=== PATIENT | female | born 1995 | race Caucasian/White ===

== ENCOUNTER → 2018-04-26 09:57 | Outpatient (CLI) | payer OTHER, SELFPAY ==
[2018-04-26 13:49] LABS: Color, Urine Yellow (Yellow); Glucose, Dipstick Normal (Normal); Ketone-Dipstick Negative (Negative); Leukocyte Esterase-Dipstick 25 /ul (Negative); Nitrite-Dipstick Negative (Negative); Occult Blood-Urine Negative /ul (Negative); Protein-Dipstick Negative (Negative); Urine Bilirubin Dipstick Negative (Negative); Urine Clarity Clear (Clear); Urine Urobilinogen Normal (Normal)
[2018-04-26 13:55] LABS: Absolute Lymphocyte Count 0.69 X10^3/ul (0.83-4.51); Absolute Neutrophil Count 4.6 X10^3/uL (2.0-7.7); Basophil# 0.01 X10^3/uL; Basophil% 0.2 % (0-1); Eosinophil# 0.08 X10^3/uL; Eosinophils% 1.4 % (0-5); Hematocrit 33.7 % (37-47); Hemoglobin 11.5 g/dl (12.0-15.0); Lymphocyte # 0.69 X10^3/ul (4.0); Lymphocyte % 11.7 % (19-41); Mean Corp Hgb Conc 34.1 g/gl (32-36); Mean Corpuscular Hgb 31.8 pg (27.0-32.0); Mean Corpuscular Volume 93.1 fL (81-99); Mean Platelet Vol. 9.8 fl (6.2-12.0); Monocyte# 0.46 X10^3/uL; Monocyte% 7.8 % (0-10); Neutrophil # 4.64 X10^3/uL (2.7-7.7); Neutrophil % 78.6 % (47-70); Platelet Count 204 K/mm3 (150-450); RBC Distribution Width CV 14.2 % (11.6-14.6); RBC Distribution Width SD 46.6 fl (35.1-43.9); Red Blood Count 3.62 M/mm3 (4.2-5.4); White Blood Count 5.9 K/mm3 (4.4-11.0)
[2018-04-26 13:57] LABS: POSITIVE COUNT NO; POSITIVE DIFFERENTIAL NO; POSITIVE MORPHOLOGY NO
[2018-04-26 14:13] LABS: Thyroid Stim Hormone (TSH) 1.27 uIU/mL (0.358-3.74)
[2018-04-26 14:50] LABS: HIV - WCH Non-Reactive (Nonreactive)
[2018-04-26 16:52] LABS: Chlamydia Trachomatis by PCR Negative (Negative); Neisserai gonorrhoeae by PCR Negative (Negative); Probe Check PASS; Sample Adequacy Control PASS; Specimen Processing Control PASS
[2018-04-27 03:32] LABS: Prenatal RPR NONREACTIVE (NONREACTIVE)
[2018-04-27 12:30] LABS: HEPATITIS B SURFACE AG Negative (Negative); Hep C Antibodies <0.1 s/co ratio (0.0-0.9)
[2018-04-28 20:11] LABS: HPV Reflexed? NOT INDICATED
== END ==
PROVIDERS: Visit Provider Obstetrics & Gynecology
DX: Z34.82 Encounter for supervision of other normal pregnancy, second trimester (principal); Z12.4 Encounter for screening for malignant neoplasm of cervix; Z11.3 Encounter for screening for infections with a predominantly sexual mode of transmission
CPT/HCPCS: 36415; 81002; 84443; 85025; 86703; 86762; 86803; 87340; 87491; 87591; 88175; G0145

== ENCOUNTER → 2018-05-24 08:53 | Outpatient (CLI) | payer OTHER, SELFPAY ==
[2018-05-24 12:18] LABS: Glucose Challenge Gest 1H 50g 105 mg/dL (70-140)
== END ==
PROVIDERS: Visit Provider Obstetrics & Gynecology
DX: Z34.82 Encounter for supervision of other normal pregnancy, second trimester (principal)
CPT/HCPCS: 36415; 82950

== ENCOUNTER → 2018-07-23 | Outpatient (CLI) | payer OTHER, SELFPAY | END | disposition home or self-care (01) | LOC: LABSPEC 11:50 | PROVIDERS: Visit Provider Obstetrics & Gynecology | DX: Z36.85 Encounter for antenatal screening for Streptococcus B (principal) | CPT/HCPCS: 87081 ==

== ENCOUNTER 2018-08-10 13:35 | Inpatient (IN) | payer SELFPAY ==
[2018-08-10 13:48] VITALS: BMI 34.6
[2018-08-10] MEDS: Lactated Ringers 1,000 ML 50 ML IV (14:20)
[2018-08-10 14:53] LABS: Absolute Lymphocyte Count 0.88 X10^3/ul (0.83-4.51); Absolute Neutrophil Count 6.1 X10^3/uL (2.0-7.7); Basophil# 0.01 X10^3/uL; Basophil% 0.1 % (0-1); Eosinophil# 0.04 X10^3/uL; Eosinophils% 0.5 % (0-5); Hematocrit 36.7 % (37-47); Hemoglobin 12.6 g/dl (12.0-15.0); Lymphocyte # 0.88 X10^3/ul (4.0); Lymphocyte % 11.4 % (19-41); Mean Corp Hgb Conc 34.3 g/gl (32-36); Mean Corpuscular Hgb 31.3 pg (27.0-32.0); Mean Corpuscular Volume 91.3 fL (81-99); Mean Platelet Vol. 9.9 fl (6.2-12.0); Monocyte# 0.66 X10^3/uL; Monocyte% 8.6 % (0-10); Neutrophil % 79.1 % (47-70); Platelet Count 172 K/mm3 (150-450); RBC Distribution Width CV 13.8 % (11.6-14.6); RBC Distribution Width SD 45.6 fl (35.1-43.9); Red Blood Count 4.02 M/mm3 (4.2-5.4); White Blood Count 7.7 K/mm3 (4.4-11.0)
[2018-08-10 14:56] LABS: POSITIVE COUNT NO; POSITIVE DIFFERENTIAL NO; POSITIVE MORPHOLOGY NO
[2018-08-10] MEDS: Oxytocin 30 units/NS 500 ml 30 UNITS/500 ML IV.SOLN IV (15:00)
[2018-08-10] MEDS: Oxytocin 10 UNITS/ML Vial IM (18:50)
--- NOTE | 2018-08-10 19:10 | PCM.OPRPT ---
Vaginal Delivery Maternal Presentation: Active Labor, Spontaneous Rupture of Membranes Amniotic Membrane Rupture Type: Spontaneous at home Amniotic Fluid Description: Clear Final TEQUILA: 08/18/18 Final TEQUILA Source: US <20 weeks Gestational age: 38 Weeks and 6 Days Date of Procedure: 08/10/18 Pre-Operative Diagnosis: IUP Post-Operative Diagnosis: IUP Surgery/ Procedure Performed: Spontaneous Vaginal Delivery Type of Anesthesia: None Description of Procedure: Spontaneous vaginal delivery of a viable female with Apgars of 8/9 from an occiput anterior presentation with clear amniotic fluid and normal three-vessel placenta. No episiotomy. Second-degree midline laceration repaired with 3-0 Rapide suture. Sponges okay. Delivery physician: Robert Hammer MD. Presentation: Vertex Placental Delivery Description: Spontaneous Placenta Disposition: [facility] Cord Vessel Description: 3 Vessels Cord Entanglement: None Estimated Blood Loss: 250 cc A gender: Female (1 minute): 8 (5 minute): 9 Episiotomy Description: None Laceration: Midline, 2nd degree Medications given after delivery: IM [place] Complications: None
--- NOTE | 2018-08-10 19:13 | OP.PCM_ITS ---
Vaginal Delivery Maternal Presentation: Active Labor, Spontaneous Rupture of Membranes Amniotic Membrane Rupture Type: Spontaneous at home Amniotic Fluid Description: Clear Final TEQUILA: 08/18/18 Final TEQUILA Source: US <20 weeks Gestational age: 38 Weeks and 6 Days Date of Procedure: 08/10/18 Pre-Operative Diagnosis: IUP Post-Operative Diagnosis: IUP Surgery/ Procedure Performed: Spontaneous Vaginal Delivery Type of Anesthesia: None Description of Procedure: Spontaneous vaginal delivery of a viable female with Apgars of 8/9 from an occiput anterior presentation with clear amniotic fluid and normal three- vessel placenta. No episiotomy. Second-degree midline laceration repaired with 3-0 Rapide suture. Sponges okay. Delivery physician: Robert Hammer MD. Presentation: Vertex Placental Delivery Description: Spontaneous Placenta Disposition: [facility] Cord Vessel Description: 3 Vessels Cord Entanglement: None Estimated Blood Loss: 250 cc Infant A gender: Female (1 minute): 8 (5 minute): 9 Episiotomy Description: None Laceration: Midline, 2nd degree Medications given after delivery: IM [place] Complications: None
--- NOTE | 2018-08-10 19:13 | PCM.DCVAG ---
Discharge Diet: No Restrictions Discharge Activity: May Shower, May Take a Tub Bath May resume sexual activity in: 4-6 weeks Additional Activity Instructions:: Nothing in the vagina for 4-6 weeks. You may return to work/school in 6 weeks. Call your doctor if you observe: Fever of 101 or Higher, Inability to urinate, Inability to have a bowel movement, Using more than one pad per hour Additional Instructions: If you experience any of the following, contact your healthcare provider. Bleeding that soaks a pad every hour for 2 hours Unrelieved incision or abdominal pain Swelling, redness, discharge or bleeding from your incision or episiotomy site Your incision begins to separate Problems urinating (including inability to urinate or burning while urinating). Visual changes Severe headache Flu-like symptoms Pain or redness in one of both of your breasts Pain, warmth, tenderness or swelling in your legs, especially the calf area Frequent nausea and vomiting Symptoms of depression or anxiety If you experience any of the following, call 911 or go to the nearest Emergency Room. Chest pain Problems breathing Seizure activity Partial or complete paralysis of a body part, slurred speech, weakness or drooping of the face, or a sudden inability to walk or hold your balance Allergies/Adverse Reactions: Allergies No Known Allergies Allergy (Verified 08/10/18 14:54) Medications to take at Discharge Pnv No.95/Ferrous Fum/Folic AC [ Caplet] 1 each PO 08/10/18 Please Follow Up With: Emily Guthrie MD - [phone] When: Call to make an appointment with your doctor in 6 weeks. Primary Care Physician: Abelino Greenwood MD [Primary Care Provider] - Test Results: Test results from this visit will be discussed in further detail at your follow-up appointment, if applicable.
--- NOTE | 2018-08-10 19:14 | DCINST_ITS ---
Discharge Diet: No Restrictions Discharge Activity: May Shower, May Take a Tub Bath May resume sexual activity in: 4-6 weeks Additional Activity Instructions:: Nothing in the vagina for 4-6 weeks. You may return to work/school in 6 weeks. Call your doctor if you observe: Fever of 101 or Higher, Inability to urinate, Inability to have a bowel movement, Using more than one pad per hour Additional Instructions: If you experience any of the following, contact your healthcare provider. * Bleeding that soaks a pad every hour for 2 hours * Unrelieved incision or abdominal pain * Swelling, redness, discharge or bleeding from your incision or episiotomy site * Your incision begins to separate * Problems urinating (including inability to urinate or burning while urinating). * Visual changes * Severe headache * Flu-like symptoms * Pain or redness in one of both of your breasts * Pain, warmth, tenderness or swelling in your legs, especially the calf area * Frequent nausea and vomiting * Symptoms of depression or anxiety If you experience any of the following, call 911 or go to the nearest Emergency Room. * Chest pain * Problems breathing * Seizure activity * Partial or complete paralysis of a body part, slurred speech, weakness or drooping of the face, or a sudden inability to walk or hold your balance Allergies/Adverse Reactions: Allergies No Known Allergies Allergy (Verified 08/10/18 14:54) Medications to take at Discharge Pnv No.95/Ferrous Fum/Folic AC [ Caplet] 1 each PO 08/10/18 Please Follow Up With: Emily Guthrie MD - [phone] When: Call to make an appointment with your doctor in 6 weeks. Primary Care Physician: Abelino Greenwood MD [Primary Care Provider] - Test Results: Test results from this visit will be discussed in further detail at your follow- up appointment, if applicable.
[2018-08-10 21:05] VITALS: BP 124/73; PULSE 109; RESP 16; TEMP 36.8
[2018-08-11 00:07] VITALS: BP 119/76; PULSE 91; RESP 16; TEMP 37.6
[2018-08-11 04:40] VITALS: BP 116/76; PULSE 109; RESP 16; TEMP 36.8
[2018-08-11 08:30] VITALS: BP 126/72; PULSE 93; RESP 16; TEMP 36.7
--- NOTE | 2018-08-11 09:26 | PN.OBGYN_ITS ---
Subjective: Patient without complaints. Breast-feeding going well. Minimal vaginal bleeding reported. Pain well controlled. - Physical Exam Vital Signs Temp Pulse Resp BP 98.0 F 93 16 126/72 H 08/11/18 08:30 08/11/18 08:30 08/11/18 08:30 08/11/18 08:30 Oxygen Delivery Method Room Air Weight: 208 lb Body Mass Index (BMI) 34.6 Laboratory Tests Past 24 Hrs 08/10/18 08/10/18 14:25 14:25 WBC 7.7 RBC 4.02 L Hgb 12.6 Hct 36.7 L MCV 91.3 MCH 31.3 MCHC 34.3 RDW 13.8 RDW Differential 45.6 H Plt Count 172 MPV 9.9 Immature Gran % (Auto) 0.300 Neut % (Auto) 79.1 H Lymph % (Auto) 11.4 L [place] % (Auto) 8.6 Eos % (Auto) 0.5 Baso % (Auto) 0.1 Absolute Neuts (auto) 6.1 Absolute Lymphs (auto) 0.88 Total Counted Not Reportable Blood Type A POSITIVE Antibody Screen NEGATIVE Medical Necessity - Tobacco Use Smoking Status: Never smoker Assessment/Plan Doing well day #1 status post routine spontaneous vaginal delivery. Continuing present care.
[2018-08-11 12:00] VITALS: BP 129/71; PULSE 93; RESP 16; TEMP 36.6
[2018-08-11 15:49] VITALS: BP 127/74; PULSE 101; RESP 16; TEMP 36.6
[2018-08-11 20:35] VITALS: BP 125/71; PULSE 92; RESP 16; TEMP 36.9
[2018-08-12 01:00] VITALS: BP 125/63; PULSE 96; RESP 16; TEMP 36.6
--- NOTE | 2018-08-12 10:37 | PCM.PN.OB ---
Subjective: Patient without complaints. Breast-feeding going well. Ready to go home today. - Physical Exam Vital Signs Temp Pulse Resp BP 98.0 F 95 16 123/65 H 08/12/18 08:42 08/12/18 08:42 08/12/18 08:42 08/12/18 08:42 Oxygen Delivery Method Room Air Weight: 208 lb Body Mass Index (BMI) 34.6 Medical Necessity - Tobacco Use Smoking Status: Never smoker Assessment/Plan Doing well day #2. Will release to home with routine instructions.
[2018-08-12 11:18] VITALS: BP 120/65; PULSE 101; RESP 16; TEMP 36.4
[2018-08-12 15:14] VITALS: BP 114/69; PULSE 89; RESP 16; TEMP 36.7
== END 2018-08-12 17:55 | disposition home or self-care (01) | DRG 807 ==
PROVIDERS: Admitting Provider Obstetrics & Gynecology; Family Provider Family Medicine; PCP Family Medicine; Referring Provider Obstetrics & Gynecology; Visit Provider Obstetrics & Gynecology
DX: O70.1 Second degree perineal laceration during delivery (principal); Z37.0 Single live birth; Z3A.38 38 weeks gestation of pregnancy
CPT/HCPCS: 59025; 59050; 85025; 86850; 86900; 99218; J7120; G0378